=== PATIENT | female | born 1945 | race Caucasian/White ===

== ENCOUNTER 2020-03-18 12:59 | Inpatient (IN) | payer MEDICARE, OTHER ==
[~2020-03-18] VITALS: Ht 154.9 cm; Wt 72.6 kg
--- NOTE | ~2020-03-18 | OP ---
PATIENT NAME: ULISES MASSEY MEDICAL RECORD: [id number] :43 LOCATION:[place] D.1209 ADMISSION DATE:04/13/20 SURGEON: CONTRERAS NEWMAN MD DATE OF OPERATION: 04/13/2020 PREOPERATIVE DIAGNOSIS: Osteoarthritis, right hip. POSTOPERATIVE DIAGNOSIS: Osteoarthritis, right hip. PROCEDURE PERFORMED: Right total hip arthroplasty. INDICATIONS: Ms. Massey is a 74-year-old female with history of right hip pain and arthritis. She has been dealing with this for some time now. Symptoms are getting progressively worse. She has elected to undergo right total hip arthroplasty. Risks, benefits, and alternatives of surgery were discussed with the patient. Consent was obtained. DESCRIPTION OF PROCEDURE: The patient was met in the holding area where her identity and confirmation of procedure was performed. The right lower extremity was marked. She was taken to the operating room where she was placed supine on the operating table. Anesthesia was administered. She was then positioned on the Hartman table. Extremities were positioned and padded appropriately. Right lower extremity was prepped and draped in a sterile fashion. The patient received preoperative antibiotics as well as TXA and a timeout was performed before initiating the case. On the initiation of the case, an anterior Sepulveda-Ring approach was utilized for exposure. We incised through the skin and subcutaneous tissues, dissected down to the tensor fascia. Tensor fascia was then split longitudinally and the interval between tensor and sartorius/rectus was utilized for our deep exposure. Circumflex vessels were identified, tagged, and cauterized. We dissected down to the anterior hip capsule and placed retractors around the superior and inferior femoral neck. The anterior capsule was then excised. Retractors were repositioned around the femoral neck and our femoral neck cut was completed. The femoral head was removed with the corkscrew device. It was sized to a size 46. Retractors were repositioned around the acetabulum and the tissue was debrided from around the circumference of the acetabulum as well as the floor of the acetabulum. We then began reaming starting with a size 43 reaming up to a 49 and placed a 50 mm cup. The cup was then inserted and impacted into position. Alignment was confirmed under x-ray. We then placed the center hole cap and the liner was tapped into place. We then turned our attention to the proximal femur. The leg was externally rotated and hook was placed under the proximal femur. The leg was then taken into extension and adduction. The femur was elevated. This tissue was released from the shoulder. Once we were pleased with our exposure, we began preparing the proximal femur using cookie cutter followed by the canal finder. We then began broaching, starting with a size [address] up to a size 9, at which point, we had good fit and stability within the canal. We trialed this with a neutral head and neck and had a good alignment, but it was a little loose as far as tensioning goes; therefore, elected to go with the high offset stem. The hip was repositioned and the trial components were removed. Hip was irrigated thoroughly with saline. Our size 9 high offset stem was then placed and tapped into position. It was trialled with a neutral head and neck and had improved tension and near equal leg lengths. The hip was again dislocated and repositioned. Our ball was removed and our final implant was tapped into place. The hip was again reduced and the alignment was checked under x-ray showed good OPERATIVE REPORT [id number] MASSEYULISES Mortensen fit with near equal leg lengths. Good tensioning on exam. Wound was irrigated thoroughly with saline. Final fluoroscopic images were obtained. The hip capsule and proximal femur were injected with joint solution. The tensor fascia was then repaired with Vicryl suture. Subcutaneous tissue was irrigated thoroughly with saline. Remainder of the joint solution was injected. Subcutaneous tissues were closed with 2-0 Vicryl and the skin was closed with jamar. A sterile dressing was placed. Drain was also placed extrafascialy as well. The patient was turned back over to anesthesia where she was awakened, extubated, and taken to recovery room in stable condition. POSTOPERATIVE PLAN: The patient will be admitted for routine postoperative care. She will receive 24 hours of postoperative antibiotics, will be started on DVT prophylaxis tomorrow. Physical therapy will be consulted to assist with mobilization, weightbearing as tolerated, right lower extremity. PLAN: Home with home health. ANESTHESIA: General. COMPLICATIONS: None. ESTIMATED BLOOD LOSS: 100 mL. TRANSINT:[id number] Voice Confirmation ID: [id number] DOCUMENT ID: [id number] CONTRERAS NEWMAN MD CC: [id number] DICTATION DATE: 04/13/201830 COMPRESSOR STATION ENGINEER: 04/13/20 2315 ADM IN [place] [id number] [place] [address]
[2020-04-07] MEDS ORDERED: AVAPRO150 MG PO (17:07)
[2020-04-07] MEDS ORDERED: OMEPRAZOLE40 MG PO (17:07)
[2020-04-07] MEDS ORDERED: HYDROCHLOROTH12.5 M1 PO (17:07)
[2020-04-07] MEDS ORDERED: FEMARA2.5 MG PO (17:08)
[2020-04-08 12:49] LABS: BILIRUBIN NEGATIVE (NEGATIVE); KETONE NEGATIVE (NEGATIVE); NITRITE NEGATIVE (NEGATIVE); UROBILINOGEN NORMAL mg/dL (< 2)
[2020-04-08 13:42] LABS: CALCIUM 8.6 mg/dL (8.5-10.1); CARBON DIOXIDE 28.7 mmol/L (21.0-32.0); POTASSIUM - SERUM 3.7 mmol/L (3.5-5.1)
[2020-04-08 13:55] LABS: BASOPHILS 0.3 % (0-2); EOSINOPHILS 3.3 % (0-7); HEMATOCRIT 41.7 % (36.0-48.0); HEMOGLOBIN 13.6 g/dL (12-16); LYMPHOCYTE ABS# 1.55 10x3/uL (1.18-3.74); LYMPHOCYTES 25.5 % (15-50); MCH 31.6 pg (26.0-34.0); MCHC 32.6 g/dL (31.0-37.0); MEAN PLATELET VOLUME 9.7 fL (7.4-10.4); MONOCYTES 4.1 % (2-11); NEUTROPHIL ABS# 4.06 10x3/uL (1.56-6.13); NEUTROPHILS 66.8 % (40-80); PLATELET COUNT 246 10x3/uL (130-400); RDW 13.4 % (11.5-14.5); WBC 6.1 10x3/uL (4.8-10.8)
[2020-04-08 14:01] LABS: APTT 26.4 SECONDS (22.8-39.4); INR 1.05 (0.85-1.17); PROTIME 12.7 SECONDS (11.6-15.0)
[2020-04-13] VITALS (11 sets, daily range): BP systolic 121–165; BP diastolic 59–83; BMI 30.3
--- NOTE | 2020-04-13 13:31 | NUR ---
RECEIVED PT TO ROOM 1209 VIA BED. AWAKE ALERT AND ORIENTED TO PERSON PLACE AND TIME. RESP EVEN AND UNLABORED. REPORTS PAIN 2/10 AT THIS TIME. IV TO LEFT HAND WITH LR @ 100ML/HR INFUSING VIA PUMP. SITE WITHOUT REDNESS OR EDEMA. DRESSING C/D/I TO RIGHT ANTERIOR HIP. PULSES PALPABLE. FLOYD HOSE IN PLACE BILATERALLY. ORIENTED TO BED CONTROLS, CALL LIGHT AND ROOM. BED ALARM ON. DENIES FURTHER NEEDS OR QUESTIONS AT THIS TIME. CL WITHIN REACH. ENCOURAGED TO CALL WITH NEEDS.
--- NOTE | 2020-04-13 19:34 | NUR ---
PATIENT RESTING IN BED WITH NO S/S OF DISTRESS. GUEST AT BEDSIDE. VSS. PATIENT DENIES PAIN AT THIS TIME. PATIENT DENIES NEEDS. BED IN LOWEST POSITION, CALL LIGHT WITHIN REACH, AND BED ALARM ON. ENCOURAGED PATIENT TO CALL WITH NEEDS.
--- NOTE | 2020-04-13 19:34 | NUR ---
PATIENT RESTING IN BED WITH NO S/S OF DISTRESS. GUEST AT BEDSIDE. VSS. PLACED PATIENT ON CPM TO RIGHT KNEE. PLACED ICE PACK TO PATIENT'S KNEE. PATIENT DENIES OTHER NEEDS AT THIS TIME. BED IN LOWEST POSITION, CALL LIGHT WITHIN REACH, AND BED ALARM ON. ENCOURAGED PATIENT TO CALL WITH NEEDS.
--- NOTE | 2020-04-13 20:34 | NUR ---
ADMINISTERED MEDS PER ORDERS. PATIENT TERRIE WELL. ENCOURAGED TO CALL WITH NEEDS.
[2020-04-14 00:31] VITALS: BP 133/72
[2020-04-14 04:52] VITALS: BP 143/71
--- NOTE | 2020-04-14 06:38 | NUR ---
PT RESTING QUIETLY IN BED. PT DENIES PAIN TO RIGHT HIP AT THIS TIME. PT DOES VOICE "ACHING" TO AFFECTED EXTREMITY "BUT IT IS TOLERABLE." DRESSING C/D/I. IV TO LEFT HAND WITH 1/2 NS @ 100ML/HR INFUSING VIA PUMP. SITE WITHOUT REDNESS OR EDEMA. DENIES FURTHER NEEDS AT THIS TIME. CL WITHIN REACH. ENCOURAGED TO CALL WITH NEEDS. CONTINUE POC
[2020-04-14 07:18] LABS: ALBUMIN 2.6 g/dL (3.4-5.0); ANION GAP 11.9 mmol/L (8-16); BASOPHILS 0.1 % (0-2); BILIRUBIN - TOTAL 0.35 mg/dL (0.2-1.3); CALCIUM 7.6 mg/dL (8.5-10.1); CARBON DIOXIDE 28.2 mmol/L (21.0-32.0); EOSINOPHILS 0.2 % (0-7); HEMATOCRIT 32.4 % (36.0-48.0); HEMOGLOBIN 10.6 g/dL (12-16); IMMATURE GRANULOCYTES 0.2 % (0-5); LYMPHOCYTE ABS# 1.36 10x3/uL (1.18-3.74); LYMPHOCYTES 13.3 % (15-50); MAGNESIUM - SERUM 1.8 mg/dL (1.8-2.4); MCH 31.8 pg (26.0-34.0); MCHC 32.7 g/dL (31.0-37.0); MCV 97.3 fL (80.0-100.0); MEAN PLATELET VOLUME 9.6 fL (7.4-10.4); MONOCYTES 7.5 % (2-11); NEUTROPHIL ABS# 8.02 10x3/uL (1.56-6.13); NEUTROPHILS 78.7 % (40-80); PLATELET COUNT 212 10x3/uL (130-400); POTASSIUM - SERUM 4.1 mmol/L (3.5-5.1); PROTEIN - SERUM 6.4 g/dL (6.4-8.2); RBC 3.33 10x6/uL (4.00-5.40); RDW 13.6 % (11.5-14.5); WBC 10.2 10x3/uL (4.8-10.8)
[2020-04-14 08:11] VITALS: BP 137/67
[2020-04-14 10:45] VITALS: Ht 154.9 cm; Wt 72.6 kg
--- NOTE | 2020-04-14 14:09 | MORECARE ---
CASE MANAGEMENT DISCHARGE SUMMARY PATIENT: ULISES MASSEY UNIT: [id number] ADM DATE: 04/13/20 AGE: 74 : 44 SEX: F ROOM/BED: D.1209 AUTHOR: RODNEY MCGRATH PHYSICIAN: REFERRING PHYSICIAN: CONTRERAS NEWMAN MD DATE OF SERVICE: 04/14/20 Discharge Plan Patient Name: ULISES MASSEY Facility: [facility]:[place] : 1945 Planned Disposition: Home with Home Health Anticipated Discharge Date: Discharge Date: Expected LOS: Initial Reviewer: [email or web address] Initial Review Date: 04/13/2020 Generated: 04/14/20 3:08 pm Patient Name: ULISES MASSEY Page 53075 at 1409 All edits/amendments must be made on the electronic document DICTATION DATE: 04/14/20 1409 REFLEXOLOGIST: BOB 04/14/20 1409 RPT#: [id number] DC DATE: STATUS: ADM IN [facility] [address] [place] [address] END OF REPORT
--- NOTE | 2020-04-14 14:17 | MORECARE ---
CASE MANAGEMENT DISCHARGE SUMMARY PATIENT: ULISES MASSEY UNIT: [id number] ADM DATE: 04/13/20 AGE: 74 : 44 SEX: F ROOM/BED: D.1209 AUTHOR: ALCIDES,DOC PHYSICIAN: REFERRING PHYSICIAN: CONTRERAS NEWMAN MD DATE OF SERVICE: 04/14/20 Discharge Plan Patient Name: ULISES MASSEY Facility: [facility]:[place] : 1945 Planned Disposition: Home with Home Health Anticipated Discharge Date: Discharge Date: Expected LOS: Initial Reviewer: [email or web address] Initial Review Date: 04/13/2020 Generated: 04/14/20 3:16 pm Comments DCP- Discharge Planning Updated by CITLALY: Ray Day on 04/14/20 1:[address] CM met with patient to complete DC plan and to evaluate needs. CM verified patient's address, phone number, and emergency contact phone numbers. Patient lives independently at home with her , Tiffany Massey ([phone]). At discharge, the patient plans to return home and feels this is a safe discharge. CM discussed availability of home health, rehab services, and medical equipment. Patient declined SNF and IPR. Patient stated that she already has the bedside commode, Elevated Toilet Seat, and Walker. Patient stated that she would like to have home health PT/OT with any company that is in network. ROBERT signed and placed on chart for [facility] and [facility]. Spoke with Jordon of [facility], clinicals Faxed to [facility]. SOC possibly 16 APR 2020. Patient voiced no other needs at this time and is satisfied with DC plan. Transportation provider at discharge will be with her Tiffany. DC IMM delivered, explained, signed by the patient, and placed in chart. Signed form also left with the patient. CM will continue to follow and will assist as needed with dc plans/needs. DCPIA - Discharge Planning Initial Assessment Updated by [email or web address]: Ray Day on 04/14/20 2:13 pm * Is the patient Alert and Oriented? Yes * How many steps to enter\exit or inside your home? 1/0 * PCP IVANIA DAY * Pharmacy [facility] [address] * Preadmission Environment Home with Family * ADLs Independent * Equipment Bedside Commode Elevated Toliet Seat Walker * Other Equipment N/A * List name and contact numbers for known caregivers / representatives who currently or will assist patient after discharge: TIFFANY MASSEY (SPOUSE) [phone] * Verbal permission to speak to the caregivers and representatives has been obtained from the patient. Yes * Community resources currently utilized None * Please name any agencies selected above. N/A * Additional services required to return to the preadmission environment? Yes * Can the patient safely return to the preadmission environment? Yes * Has this patient been hospitalized within the prior 30 days at any hospital? No External Providers External Provider: [facility] Next Contact Date: Service Request Date: Service Type: Resolution: Reviewer: Comments: Coverage Notice Reviewer: [id number] Slim Day Notice Issued Date-Time: 04/14/2020 14:15 Notice Type: Patient Choice Letter Notice Delivered To: Patient Relationship to Patient: Self Web Solutions Architect Name: Delivery Method: HAND - Hand Delivered Lakesha Days: Prior Verbal Notification: Recipient Understood Notice: Yes Recipient Signature: Yes Med Rec Note Co-signed by Attending: Coverage Notice Comment: DC IMM delivered, explained, signed by the patient, and placed in chart. Last DP export: 04/14/20 1:09 pm Patient Name: ULISES MASSEY Page 10476 at 1417 All edits/amendments must be made on the electronic document DICTATION DATE: 04/14/201416 TACTICAL DEBRIEFER OFFICER: BOB 04/14/20 1417 RPT#: [id number] DC DATE: STATUS: ADM IN [facility] [address] [place] [address] END OF REPORT
[2020-04-14 20:00] VITALS: BP 152/69
--- NOTE | 2020-04-14 20:00 | NUR ---
ALERT SITTING UP IN BED, DENIES PAIN OR NEEDS AT THIS TIME, SEE SHIFT ASSESSMENT CALL LIGHT IN REACH, REFUSED [facility] STATES HAD BAD EXPERIENCE WITH THEM BEFORE MADE BLISTER ON BACK OF LEG
[2020-04-15 04:15] VITALS: BP 125/61
--- NOTE | 2020-04-15 08:00 | NUR ---
AWAKE AND ALERT. ORIENTED X3. SITTING UP IN CHAIR AT BEDSIDE FOR BREAKFAST. LUNGS ARE CLEAR BILATERAlly, NO COUGH NOTED. SKIN IS INTACT WITHOUT REDNESS EXCEPT INCISION TO RIGHT HIP WHICH HAS A DRY INTACT DRESSING IN PLACE. SL TO LEFT HAND IS PATENT WITHOUT REDNESS AT INSERTION SITE. DENIES NEEDS.
[2020-04-15 09:10] LABS: BASOPHILS 0.3 % (0-2); EOSINOPHILS 1.3 % (0-7); HEMATOCRIT 30.8 % (36.0-48.0); HEMOGLOBIN 10.3 g/dL (12-16); IMMATURE GRANULOCYTES 0.1 % (0-5); LYMPHOCYTE ABS# 0.86 10x3/uL (1.18-3.74); LYMPHOCYTES 12.5 % (15-50); MCH 31.7 pg (26.0-34.0); MCHC 33.4 g/dL (31.0-37.0); MEAN PLATELET VOLUME 9.6 fL (7.4-10.4); MONOCYTES 7.9 % (2-11); NEUTROPHIL ABS# 5.35 10x3/uL (1.56-6.13); NEUTROPHILS 77.9 % (40-80); PLATELET COUNT 190 10x3/uL (130-400); RBC 3.25 10x6/uL (4.00-5.40); RDW 13.2 % (11.5-14.5)
[2020-04-15 09:19] LABS: MCV 94.8 fL (80.0-100.0); WBC 6.9 10x3/uL (4.8-10.8)
[2020-04-15 09:32] LABS: ALBUMIN 2.5 g/dL (3.4-5.0); ANION GAP 10.5 mmol/L (8-16); BILIRUBIN - TOTAL 0.58 mg/dL (0.2-1.3); CALCIUM 8.2 mg/dL (8.5-10.1); CARBON DIOXIDE 27.5 mmol/L (21.0-32.0); CREATININE - SERUM 0.8 mg/dL (0.6-1.3); MAGNESIUM - SERUM 2.1 mg/dL (1.8-2.4); PROTEIN - SERUM 6.4 g/dL (6.4-8.2)
[2020-04-15 09:36] LABS: PHOSPHOROUS 2.9 mg/dL (2.5-4.9)
--- NOTE | 2020-04-15 10:00 | NUR ---
UP IN CHIAR AT BEDSIDE. AMBULATED IN [place] WITH PT USING RW. NO C/O AT THIS TIME.
[2020-04-15 11:08] VITALS: BP 126/61
[2020-04-15 12:00] VITALS: BP 138/82
--- NOTE | 2020-04-15 12:30 | NUR ---
LUNCH SERVED IN ROOM. FEEDS SELF. DENIES NEEDS.
--- NOTE | 2020-04-15 15:06 | MORECARE ---
CASE MANAGEMENT DISCHARGE SUMMARY PATIENT: ULISES MASSEY UNIT: [id number] ADM DATE: 04/13/20 AGE: 74 : 44 SEX: F ROOM/BED: D.1209 AUTHOR: ALCIDES,DOC PHYSICIAN: REFERRING PHYSICIAN: CONTRERAS NEWMAN MD DATE OF SERVICE: 04/15/20 Discharge Plan Patient Name: ULISES MASSEY Facility: [facility]:[place] : 1945 Planned Disposition: Home with Home Health Anticipated Discharge Date: Discharge Date: Expected LOS: Initial Reviewer: [email or web address] Initial Review Date: 04/13/2020 Generated: 04/15/20 4:05 pm Comments DCP- Discharge Planning Updated by [email or web address]: Amaris Dinh on 04/15/20 2:[address] DC home today. I called Errol with [facility] , they will see tomorrow. DCS and order faxed to [facility]. Home today with home health. DCP- Discharge Planning Updated by [email or web address]: Ray Day on 04/14/20 1:[address] CM met with patient to complete DC plan and to evaluate needs. CM verified patient's address, phone number, and emergency contact phone numbers. Patient lives independently at home with her , Tiffany Massey ([phone]). At discharge, the patient plans to return home and feels this is a safe discharge. CM discussed availability of home health, rehab services, and medical equipment. Patient declined SNF and IPR. Patient stated that she already has the bedside commode, Elevated Toilet Seat, and Walker. Patient stated that she would like to have home health PT/OT with any company that is in network. ROBERT signed and placed on chart for [facility], and [facility]. Spoke with Jordon of [facility], clinicals Faxed to [facility]. SOC possibly Apr. Patient voiced no other needs at this time and is satisfied with DC plan. Transportation provider at discharge will be with her Tiffany. DC IMM delivered, explained, signed by the patient, and placed in chart. Signed form also left with the patient. CM will continue to follow and will assist as needed with dc plans/needs. DCPIA - Discharge Planning Initial Assessment Updated by [id number]: Ray Day on 04/14/20 2:13 pm * Is the patient Alert and Oriented? Yes * How many steps to enter\exit or inside your home? 1/0 * PCP IVANIA DAY * Pharmacy [facility] [address] * Preadmission Environment Home with Family * ADLs Independent * Equipment Bedside Commode Elevated Toliet Seat Walker * Other Equipment N/A * List name and contact numbers for known caregivers / representatives who currently or will assist patient after discharge: TIFFANY MASSEY (SPOUSE) [phone] * Verbal permission to speak to the caregivers and representatives has been obtained from the patient. Yes * Community resources currently utilized None * Please name any agencies selected above. N/A * Additional services required to return to the preadmission environment? Yes * Can the patient safely return to the preadmission environment? Yes * Has this patient been hospitalized within the prior 30 days at any hospital? No Coverage Notice Reviewer: CITLALY Day Notice Issued Date-Time: 04/14/2020 14:15 Notice Type: Patient Choice Letter Notice Delivered To: Patient Relationship to Patient: Self Instrument Sterilizer Name: Delivery Method: HAND - Hand Delivered Lakesha Days: Prior Verbal Notification: Recipient Understood Notice: Yes Recipient Signature: Yes Med Rec Note Co-signed by Attending: Coverage Notice Comment: [facility] Reviewer: CITLALY Day Notice Issued Date-Time: 04/14/2020 14:15 Notice Type: IM Discharge Notice Notice Delivered To: Patient Relationship to Patient: Self Instrument Sterilizer Name: Delivery Method: HAND - Hand Delivered Lakesha Days: Prior Verbal Notification: Recipient Understood Notice: Yes Recipient Signature: Yes Med Rec Note Co-signed by Attending: Coverage Notice Comment: DC IMM delivered, explained, signed by the patient, and placed in chart. Last DP export: 04/14/20 1:17 pm Patient Name: ULISES MASSEY Page [phone] at 1506 All edits/amendments must be made on the electronic document DICTATION DATE: 04/15/20 1505 RADIAL DRILL OPERATOR: BOB 04/15/20 1505 RPT#: [id number] DC DATE: STATUS: ADM IN [facility] [address] [place] [address] END OF REPORT
--- NOTE | 2020-04-15 15:30 | NUR ---
GIVEN ON HYDROCODONE PO FOR PAIN MANAGEMENT WITH D/C HOME. WILL MONITOR.
[2020-04-15] MEDS ORDERED: HYDROCODONE-AC1 EAC2 PO (16:18)
[2020-04-15] MEDS ORDERED: ELIQUIS2.5 MG PO (16:19)
--- NOTE | 2020-04-15 16:50 | NUR ---
DISCHARGED TO HOME AMBULATORY WITH . DISCHARGE INSTRUCTIONS GIVEN BOTH VERBALLY AND WRITTEN ALL QUESTIONS ANSWERED. PATIENT VERBALIZED UNDERSTANDING OF SAME. SL TO LEFT HAND D/C WITH CATHETER INTACT. NEEDED PRESCRIPTIONS GIVEN TO PATIENT. ELIQUIS SAMPLES GIVEN TO PATIENT PER MD ORDERS. ALL BELONGING WITH PATIENT.
--- NOTE | 2020-04-16 14:41 | MORECARE ---
CASE MANAGEMENT DISCHARGE SUMMARY PATIENT: ULISES MASSEY UNIT: [id number] ADM DATE: 04/13/20 AGE: 74 : 44 SEX: F ROOM/BED: D.1209 AUTHOR: ALCIDES,DOC PHYSICIAN: REFERRING PHYSICIAN: CONTRERAS NEWMAN MD DATE OF SERVICE: 04/16/20 Discharge Plan Patient Name: ULISES MASSEY Facility: [facility]:[place] : 1945 Planned Disposition: Home with Home Health Anticipated Discharge Date: Discharge Date: 04/15/2020 Expected LOS: Initial Reviewer: [email or web address] Initial Review Date: 04/13/2020 Generated: 04/16/20 3:40 pm Comments DCP- Discharge Planning Updated by [email or web address]: Amaris Dinh on 04/15/20 2:[address] DC home today. I called Errol with [facility] , they will see tomorrow. DCS and order faxed to [facility]. Home today with home health. DCP- Discharge Planning Updated by [id number]: Ray Day on 04/14/20 1:[address] CM met with patient to complete DC plan and to evaluate needs. CM verified patient's address, phone number, and emergency contact phone numbers. Patient lives independently at home with her , Tiffany Massey ([phone]). At discharge, the patient plans to return home and feels this is a safe discharge. CM discussed availability of home health, rehab services, and medical equipment. Patient declined SNF and IPR. Patient stated that she already has the bedside commode, Elevated Toilet Seat, and Walker. Patient stated that she would like to have home health PT/OT with any company that is in network. ROBERT signed and placed on chart for [facility]. Spoke with Jordon of [facility], clinicals Faxed to [facility]. SOC possibly 16 APR 2020. Patient voiced no other needs at this time and is satisfied with DC plan. Transportation provider at discharge will be with her Tiffany. DC IMM delivered, explained, signed by the patient, and placed in chart. Signed form also left with the patient. CM will continue to follow and will assist as needed with dc plans/needs. DCPIA - Discharge Planning Initial Assessment Updated by [id number]: Ray Day on 04/14/20 2:13 pm * Is the patient Alert and Oriented? Yes * How many steps to enter\exit or inside your home? 1/0 * PCP IVANIA DAY * Pharmacy [facility] [address] * Preadmission Environment Home with Family * ADLs Independent * Equipment Bedside Commode Elevated Toliet Seat Walker * Other Equipment N/A * List name and contact numbers for known caregivers / representatives who currently or will assist patient after discharge: TIFFANY MASSEY (SPOUSE) [phone] * Verbal permission to speak to the caregivers and representatives has been obtained from the patient. Yes * Community resources currently utilized None * Please name any agencies selected above. N/A * Additional services required to return to the preadmission environment? Yes * Can the patient safely return to the preadmission environment? Yes * Has this patient been hospitalized within the prior 30 days at any hospital? No Coverage Notice Reviewer: CITLALY Day Notice Issued Date-Time: 04/14/2020 14:15 Notice Type: Patient Choice Letter Notice Delivered To: Patient Relationship to Patient: Self Engine Watchman Name: Delivery Method: HAND - Hand Delivered Lakesha Days: Prior Verbal Notification: Recipient Understood Notice: Yes Recipient Signature: Yes Med Rec Note Co-signed by Attending: Coverage Notice Comment: [facility] Reviewer: [id number] Slim Day Notice Issued Date-Time: 04/14/2020 14:15 Notice Type: IM Discharge Notice Notice Delivered To: Patient Relationship to Patient: Self Engine Watchman Name: Delivery Method: HAND - Hand Delivered Lakesha Days: Prior Verbal Notification: Recipient Understood Notice: Yes Recipient Signature: Yes Med Rec Note Co-signed by Attending: Coverage Notice Comment: DC IMM delivered, explained, signed by the patient, and placed in chart. Last DP export: 04/15/20 2:06 pm Patient Name: ULISES MASSEY Page 53626 at 1441 All edits/amendments must be made on the electronic document DICTATION DATE: 04/16/20 1441 BRAKE LINING DRILLER: BOB 04/16/20 1441 RPT#: [id number] DC DATE:04/15/20 STATUS: DIS IN [facility] [address] [place] [address] END OF REPORT
== END 2020-04-15 16:10 | disposition home health service (06) | DRG 470 ==
LOC: D.M3 04-13 07:33 → D.SDCHOLD 04-13 07:33 → D.MS 04-13 09:00 → D.OPS 04-13 09:00 → EDSTATUS 04-13 10:00 → D.MS 04-13 10:00 → D.M3 04-13 12:39
PROVIDERS: Emergency Medicine; Orthopaedic Surgery; ADMIT Orthopaedic Surgery; ATTEND Orthopaedic Surgery
PROC: 0SR90JZ Replacement of Right Hip Joint with Synthetic Substitute, Open Approach (ICD-10-PCS; principal; 2020-04-13 09:00)
DX: M16.11 Unilateral primary osteoarthritis, right hip (principal); I10 Essential (primary) hypertension; K21.9 Gastro-esophageal reflux disease without esophagitis